=== PATIENT | female | born 1970 | race Caucasian/White ===

== ENCOUNTER → 2018-09-30 16:10 | Outpatient (CLI) | payer OTHER, SELFPAY ==
[2018-09-30 18:09] LABS: T4 Free Direct 0.52 ng/dL (0.76-1.46); Thyroid Stim Hormone (TSH) 0.88 uIU/mL (0.358-3.74)
[2018-10-02 17:24] LABS: Free T3 2.5 pg/mL (2.18-3.98)
== END ==
PROVIDERS: Visit Provider Family Medicine
DX: E06.3 Autoimmune thyroiditis (principal)
CPT/HCPCS: 36415; 84439; 84443; 84481

== ENCOUNTER → 2019-06-29 | Outpatient (CLI) | payer OTHER, SELFPAY ==
[2019-06-29 14:23] LABS: Free T3 3.5 pg/mL (2.18-3.98); T4 Free Direct 0.61 ng/dL (0.76-1.46); Thyroid Stim Hormone (TSH) 0.01 uIU/mL (0.358-3.74)
== END | disposition home or self-care (01) ==
LOC: MFPLAB 12:07
PROVIDERS: Family Provider Family Medicine; PCP Family Medicine; Referring Provider Family Medicine; Visit Provider Family Medicine
DX: E06.3 Autoimmune thyroiditis (principal)
CPT/HCPCS: 36415; 84439; 84443; 84481

== ENCOUNTER → 2019-10-14 14:07 | Outpatient (CLI) | payer OTHER, SELFPAY ==
[2019-10-14 15:48] LABS: Free T3 3.7 pg/mL (2.18-3.98); T4 Free Direct 0.74 ng/dL (0.76-1.46); Thyroid Stim Hormone (TSH) 0.01 uIU/mL (0.358-3.74)
== END ==
PROVIDERS: Family Provider Family Medicine; PCP Family Medicine; Referring Provider Family Medicine; Visit Provider Family Medicine
DX: E06.3 Autoimmune thyroiditis (principal)
CPT/HCPCS: 36415; 84439; 84443; 84481

== ENCOUNTER → 2019-12-14 12:36 | Outpatient (CLI) | payer OTHER, SELFPAY ==
[2019-12-16 13:20] LABS: HPV Reflexed? NOT INDICATED
== END ==
PROVIDERS: Family Provider Family Medicine; PCP Family Medicine; Referring Provider Nurse Practitioner Family; Visit Provider Nurse Practitioner Family
DX: Z01.419 Encounter for gynecological examination (general) (routine) without abnormal findings (principal)
CPT/HCPCS: 88175; G0145

== ENCOUNTER 2020-01-11 09:48 | Day surgery (SDC) | payer OTHER, SELFPAY ==
--- NOTE | 2019-12-28 11:06 | HP_ITS ---
Intake Vital Signs 12/28/19 Height 5 ft 6.25 in 12/28/19 Weight: 125 lb 12/28/19 BP 120/75 12/28/19 Blood Pressure Location Rt brachial 12/28/19 Position Sitting 12/28/19 Respiration 18 Intake Visit Reasons: RECTAL BLEEDING Organizational Effectiveness Consultant Required: No Is patient in pain?: No Allergies No Known Allergies Allergy (Unverified 12/28/19 09:58) Medications ascorbic acid (vitamin C) 1,000 mg tablet 1 g PO Q6H 12/28/19 [History Confirmed 12/28/19] cholecalciferol (vitamin D3) 2,000 unit tablet 2,000 unit PO DAILY 12/28/19 [History Confirmed 12/28/19] cyclobenzaprine 10 mg tablet 10 mg PO HS 12/28/19 [History Confirmed 12/28/19] multivitamin 1 tab PO DAILY 12/28/19 [History Confirmed 12/28/19] naproxen 500 mg tablet 500 mg PO BID 12/28/19 [History Confirmed 12/28/19] thyroid (pork) 60 mg tablet 60 mg PO .fives times daily tab 12/28/19 [History Confirmed 12/28/19] PFSH Medical History Bloody diarrhea (Acute) Hypothyroid (Acute) Surgical History History of wisdom tooth extraction (Acute) S/P unilateral salpingo-oophorectomy (Acute) Family History Father Heart disease HPI HPI HPI: FRANKLIN SULTANA, is a 49 F who presents to the office today for HPI HPI Surgical H&P: Yes HPI: FRANKLIN SULTANA, is a 49 F who presents to the office today for bright red blood per rectum. Patient states since June she is noticed bright red blood per rectum with bowel movements. Patient states she has bowel movements almost every day and also has blood almost every day. Patient states she does have a history of IBS so she will have softer stools and then diarrhea. Patient states she may have some hemorrhoids that prolapse out when she is on the toilet but they are not always out. Patient denies any abdominal pain or nausea or vomiting. Patient does have past medical history for ankylosing spondylosis as well as Shalom's. Patient's last colonoscopy was in 2009 due to irregular bowel movements clinic main campus negative per patient. patient denies any family history of colon cancer. Exam Const General: cooperative, comfortable, no acute distress Resp Effort & Inspection: normal respiratory effort Cardio Rate: regular rate GI Inspection: non-distended Palpation: soft, no guarding, nontender Other: KATHRIN: Small internal hemorrhoids appreciated about 3:00 to 5:00 with 12:00 being posterior, no obvious prolapsing on exam with Valsalva, no gross blood, no other masses appreciated, normal sphincter tone Assessment & Plan Problems 1. BRBPR (bright red blood per rectum) K62.5 Plan I have discussed the above with the patient. I have offered the patient colonoscopy for evaluation. I have explained the risks/benefits of the procedure and described the procedure. I have discussed the risks with the patient, including but not limited to: infection, bleeding, perforation of the GI tract requiring emergency surgery, inability to complete the procedure, injury to any internal organs, complications of anesthesia, etc. - the patient understands and agrees to proceed. I have answered all the patient's questions to the patient's satisfaction and the patient has no further questions. The patient has been given instructions for the colon cleansing preparation. One day of clears, MiraLAX to collect split prep. Camila Slaughter M.D. Pager: [phone] [facility] [address] [place] [address], [address] [place] [address] Office: [phone] Plan Detail Follow Up We will schedule colonoscopy Coding Level of Care Code Off vis,new,level 3 Diagnoses BRBPR (bright red blood per rectum) K62.5 12/28/19 1107 <Electronically signed by Caimla Whitehead am, MD> Date _ Camila Slaughter MD I have examined the patient the following changes are noted: Patient tolerated prep well and denies any bleeding during colon prep.
[2020-01-11 10:25] VITALS: BP 101/60; PULSE 75; RESP 16; TEMP 36.8; O2SAT 100; BMI 19.5
[2020-01-11 10:30] LABS: Internal QC Validated? YES +Cl - CLEAR BKGD; Pregnancy, Urine Negative Negative
[2020-01-11] MEDS: Lactated Ringers 1,000 ML 100 ML IV (10:30)
--- NOTE | 2020-01-11 11:00 | COLBX_PTH ---
PATIENT: FRANKLIN SULTANA LOC: EN U#:[id number] AGE/SX: 49/F ROOM: RE01/11/[address]: Dr. Camila Slaughter MD : 1970 BED: DIS: 01/11/2020 SPEC #: [id number] RECD: 01/11/20 14:20 STATUS: PRASANAN MAUREEN #: [id number] JEAN-PAUL: 01/11/20 11:[address]: Camila Slaughter DEPT: SURGICAL PATHOLOGY RECD BY: Sylvie Salter ENTERED: 01/11/20 14:25 SP TYPE: COLON BX OT DR: Dr. Rosas Chase MD Tissues: Sigmoid colon biopsy Procedures: Surgery Specimen Level IV HEADER OPERATION: Colonoscopy (MAC) PRE-OP DIAGNOSIS: Rectal bleeding TISSUE SUBMITTED: Distal sigmoid biopsy MICROSCOPIC DIAGNOSIS Distal sigmoid, biopsy: Fragments of colonic mucosa, no pathologic diagnosis. SJ:tashi 01/12/20 MICROSCOPIC DESCRIPTION Slides are reviewed. GROSS DESCRIPTION Received in fixative is one container labeled with the patient's name and designated distal sigmoid biopsy. The specimen consists of two irregular fragments of light portillo soft tissue that in aggregate measure 0.5 x 0.3 x 0.1 cm. The specimen is totally submitted in one cassette. / SJ:tashi 01/11/20 TC:4 CPT: 33533
[2020-01-11 11:55] VITALS: BP 101/60; BP 95/56; PULSE 71; RESP 18; TEMP 36.4; O2SAT 100
--- NOTE | 2020-01-11 11:58 | OP.COLON_ITS ---
Patient Name: Marialuisa Gomez Procedure Date: 01/11/2020 10:37 AM Date of : 1970 Age: 49 Procedure: Colonoscopy Indications: Rectal bleeding Providers: Camila Slaughter MD Referring MD: Camila Slaughter MD Medicines: Monitored Anesthesia Care Patient Profile: This is a 49 year old female. Last Colonoscopy: 8 years ago. Complications: No immediate complications. Procedure: Pre-Anesthesia Assessment: - Prior to the procedure, a History and Physical was performed, and patient medications and allergies were reviewed. The patient's tolerance of previous anesthesia was also reviewed. The risks and benefits of the procedure and the sedation options and risks were discussed with the patient. All questions were answered, and informed consent was obtained. Prior Anticoagulants: The patient has taken no previous anticoagulant or antiplatelet agents. ASA Grade Assessment: II - A patient with mild systemic disease. After reviewing the risks and benefits, the patient was deemed in satisfactory condition to undergo the procedure. After I obtained informed consent, the scope was passed under direct vision. Throughout the procedure, the patient's blood pressure, pulse, and oxygen saturations were monitored continuously. The colonoscope was introduced through the anus and advanced to the cecum, identified by the appendiceal orifice, ileocecal valve and palpation. The patient tolerated the procedure well. The colonoscopy was technically difficult and complex due to a tortuous colon. Successful completion of the procedure was aided by changing the patient to a supine position. Scope In: 11:08:58 AM Scope Withdrawal Time 0 hours 18 minutes 43 seconds Scope Out: 11:49:33 AM Total Procedure Duration Time 0 hours 40 minutes 35 seconds Findings: Hemorrhoids were found on perianal exam. Non-bleeding internal hemorrhoids were found during digital exam. The hemorrhoids were Grade I (internal hemorrhoids that do not prolapse) and Grade II (internal hemorrhoids that prolapse but reduce spontaneously). A linear area of mildly irritated mucosa was found in the sigmoid colon--may have been due to trauma from the scope. Biopsies were taken with a cold forceps for histology. The exam was otherwise without abnormality. Impression: - Hemorrhoids found on perianal exam. - Non-bleeding internal hemorrhoids. - Mucosa in the sigmoid colon. Biopsied. - The examination was otherwise normal. Recommendation: - Discharge patient to home. - Resume previous diet. - Continue present medications. - Await pathology results. - Repeat colonoscopy in 10 years for screening purposes. Procedure Code(s): --- Professional --- 23312, Colonoscopy, flexible; with biopsy, single or multiple Diagnosis Code(s): --- Professional --- K64.1, Second degree hemorrhoids K63.89, Other specified diseases of intestine K62.5, Hemorrhage of anus and rectum CPT copyright 2017 [employer]. All rights reserved. The codes documented in this report are preliminary and upon top coater review may be revised to meet current compliance requirements. MD Camila Cage MD 01/11/2020 11:58:01 AM This report has been signed electronically. Number of Addenda: 0 Note Initiated On: 01/11/2020 10:37 AM
--- NOTE | 2020-01-11 11:58 | OP.CCLET_ITS ---
01/11/2020 Rosas Chase [address] [place] [address] Re : Colonoscopy procedure for Marialuisa Cadego Dear Dr. Chase This procedure was performed on Saturday, January 11, 2020. My impressions and recommendations are as follows: Impressions : - Hemorrhoids found on perianal exam. - Non-bleeding internal hemorrhoids. - Mucosa in the sigmoid colon. Biopsied. - The examination was otherwise normal. Recommendations : - Discharge patient to home. - Resume previous diet. - Continue present medications. - Await pathology results. - Repeat colonoscopy in 10 years for screening purposes. My findings are described in the full procedure note, which is enclosed. If I can be of further assistance, please feel free to contact me at Doctor phone number(s): , Work: . Sincerely, MD Camila Cage MD 01/11/2020 11:58:01 AM This report has been signed electronically.
[2020-01-11 12:00] VITALS: BP 101/60; BP 101/63; PULSE 74; RESP 18; O2SAT 100
[2020-01-11 12:05] VITALS: BP 101/60; BP 105/67; PULSE 71; RESP 18; O2SAT 100
[2020-01-11 12:10] VITALS: BP 101/60; BP 107/66; PULSE 70; RESP 18; TEMP 36.3; O2SAT 100
[2020-01-11 12:39] VITALS: BP 101/60
== END 2020-01-11 12:51 | disposition home or self-care (01) ==
LOC: EN 09:49 → AC 09:51
PROVIDERS: Anesthesiology; PCP Family Medicine; Referring Provider Surgery; Visit Provider Surgery
PROC: 0DJD8ZZ Inspection of Lower Intestinal Tract, Via Natural or Artificial Opening Endoscopic (ICD-10-PCS; CPT 45378; principal; 2020-01-11 10:55)
DX: K64.1 Second degree hemorrhoids (principal); K64.0 First degree hemorrhoids; E03.9 Hypothyroidism, unspecified; M45.9 Ankylosing spondylitis of unspecified sites in spine; K58.9 Irritable bowel syndrome, unspecified; K21.9 Gastro-esophageal reflux disease without esophagitis; M06.9 Rheumatoid arthritis, unspecified; Z79.899 Other long term (current) drug therapy
CPT/HCPCS: 45380; 81025; 88305; J7120

== ENCOUNTER → 2020-07-26 13:46 | Outpatient (CLI) | payer OTHER, SELFPAY ==
[2020-07-26 15:58] LABS: T4 Free Direct 0.86 ng/dL (0.76-1.46); Thyroid Stim Hormone (TSH) < 0.01 uIU/mL (0.358-3.74)
== END ==
PROVIDERS: PCP Family Medicine; Referring Provider Family Medicine; Visit Provider Family Medicine
DX: E06.3 Autoimmune thyroiditis (principal)
CPT/HCPCS: 36415; 84439; 84443; 84481

== ENCOUNTER → 2021-04-08 09:24 | Outpatient (CLI) | payer OTHER, SELFPAY ==
[2021-04-08 10:09] LABS: Absolute Lymphocyte Count 2.34 X10^3/uL (0.83-4.51); Absolute Neutrophil Count 1.9 X10^3/uL (2.0-7.7); Basophil# 0.06 X10^3/uL; Basophil% 1.2 % (0-1); Eosinophil# 0.19 X10^3/uL; Eosinophils% 3.8 % (0-5); Hematocrit 43.5 % (37-47); Hemoglobin 13.9 g/dL (12.0-15.0); Lymphocyte # 2.34 X10^3/ul (0.83-4.51); Lymphocyte % 46.7 % (19-41); Mean Corpuscular Hgb 30.9 pg (27.0-32.0); Mean Corpuscular Volume 96.7 fL (81-99); Mean Platelet Vol. 10.1 fl (6.2-12.0); Monocyte# 0.55 X10^3/uL; NRBC Flagged by Analyzer 0 % (0-5); Neutrophil # 1.86 X10^3/uL (2.7-7.7); Neutrophil % 37.1 % (47-70); Platelet Count 251 K/mm3 (150-450); RBC Distribution Width CV 11.5 % (11.6-14.6); RBC Distribution Width SD 41.1 fl (35.1-43.9)
[2021-04-08 10:42] LABS: ALB/GLOB Ratio 1.3 RATIO (0.9-2.4); AST(SGOT) 26 U/L (15-37); Alanine Aminotransfer ALT/SGPT 35 U/L (13-56); Albumin, Serum 4.4 g/dL (3.2-5.0); Alkaline Phosphatase 87 U/L (45-117); Anion Gap 4 (5-15); BUN 26 mg/dL (7-18); BUN/Creat Ratio 35.6 RATIO (10-20); Calcium,Total 8.9 mg/dL (8.5-10.1); Chloride 102 mmol/L (98-107); Cholesterol 226 mg/dL (200); Creatinine, Serum 0.73 mg/dL (0.55-1.02); EST Glomerular Filtration Rate 90 mL/min (>60); Est Glom Filt Rate - Afr Amer 108 mL/min (>60); Free T3 1.7 pg/mL (2.18-3.98); Globulin 3.4 g/dL (2.2-4.2); Glucose 96 mg/dL (74-106); High Density Lipoprotein 89 mg/dL; Potassium 4.1 mmol/L (3.5-5.1); Protein, Total 7.8 g/dL (6.4-8.2); Sodium Level 138 mmol/L (136-145); T4 Free Direct 0.58 ng/dL (0.76-1.46); Thyroid Stim Hormone (TSH) 0.02 uIU/mL (0.358-3.74); Triglycerides 55 mg/dL; Very Low Density Lipoprotein 11 mg/dL (5-40)
== END ==
PROVIDERS: PCP Family Medicine; Visit Provider Family Medicine
DX: E06.3 Autoimmune thyroiditis (principal)
CPT/HCPCS: 36415; 80053; 80061; 84439; 84443; 84481; 85025

== ENCOUNTER → 2021-10-06 14:34 | Outpatient (CLI) | payer OTHER, SELFPAY ==
[2021-10-06 17:12] LABS: Thyroid Stim Hormone (TSH) 0.01 uIU/mL (0.358-3.74)
== END ==
PROVIDERS: PCP Family Medicine; Referring Provider Internal Medicine Endocrinology, Diabetes & Metabolism; Visit Provider Internal Medicine Endocrinology, Diabetes & Metabolism
DX: E03.8 Other specified hypothyroidism (principal); E06.3 Autoimmune thyroiditis
CPT/HCPCS: 36415; 84439; 84443; 84481

== ENCOUNTER 2022-01-10 16:43 | Outpatient (CLI) | payer OTHER, SELFPAY ==
[2022-01-16 15:08] LABS: HPV APTIMA, High Risk Negative (Negative)
[2022-01-16 15:09] LABS: HPV Reflexed? YES, CHARGE PATIENT
== END 2022-01-10 23:59 | disposition home or self-care (01) ==
LOC: LABSPEC 16:45 → MFPLAB 16:46
PROVIDERS: PCP Family Medicine; Referring Provider Family Medicine; Visit Provider Family Medicine
DX: Z00.00 Encounter for general adult medical examination without abnormal findings (principal); R31.9 Hematuria, unspecified
CPT/HCPCS: 87086; 87624; 88175; G0145

== ENCOUNTER → 2022-04-13 | Outpatient (CLI) | payer OTHER, SELFPAY ==
[2022-04-13 15:54] LABS: Free T3 3.3 pg/mL (2.18-3.98); T4 Free Direct 0.64 ng/dL (0.76-1.46); Thyroid Stim Hormone (TSH) 0.01 uIU/mL (0.358-3.74)
== END | disposition home or self-care (01) ==
LOC: MTLAB 14:01
PROVIDERS: PCP Family Medicine; Referring Provider Internal Medicine Endocrinology, Diabetes & Metabolism; Visit Provider Internal Medicine Endocrinology, Diabetes & Metabolism
DX: E03.8 Other specified hypothyroidism (principal); E06.3 Autoimmune thyroiditis
CPT/HCPCS: 36415; 84439; 84443; 84481

== ENCOUNTER 2023-09-20 09:00 | Day surgery (SDC) | payer BC, SELFPAY ==
--- NOTE | 2023-09-20 09:21 | PCM.HP.BLA ---
History and Physical Date of Admission: 09/20/23 Chief Complaint: rectal bleeding/hemorrhoids Allergies No Known Allergies Allergy (Verified 08/06/23 15:08) Medications naproxen 500 mg tablet 500 mg PO DAILY PRN Pain Or Fever 12/28/19 [History Confirmed 08/06/23] thyroid (pork) 120 mg tablet 120 mg PO .COMPLEX #42 tabs 04/16/22 [Rx Confirmed 08/06/23] Hydrocortisone 2.5%/lidocaine 5% suppository (cmpd) #30 ea 09/18/22 [Rx Confirmed 08/06/23] Diltiazem 2% / Lidocaine 5% ointment (compound) #1 ea 01/29/23 [Rx Confirmed 08/06/23] Hydrocortisone 2.5%/lidocaine 5% suppository (cmpd) #30 ea 04/02/23 [Rx Confirmed 08/06/23] [facility] Medical History Anal fissure Arthritis Bloody diarrhea Hypothyroid 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 Her most recent office visit was April 02, 2023 when she was seen in the office by Dr. Camila Slaughter. The patient was having bright red blood per rectum. Her most recent colonoscopy was January 11, 2020. She was treated with hydrocortisone suppositories. At her previous office visit in January 2020 through there was concerned about a possible anal fissure. The patient was prescribed diltiazem ointment at that time. Patient presents today for an additional opinion regarding intermittent episodes of profuse rectal bleeding sometimes with clot always bright red. She then goes on to discuss that she will have tissue prolapse which she is assuming is internal hemorrhoids. She has to manually reduce the tissue. She notes the colonoscopy of January 11, 2020 when there was a questionable area of the sigmoid colon that was biopsied but normal tissue. There was then suggested that this was simply scope irritation during the colonoscopy. She does have a family history of the great-grandmother had colon cancer but she was in her 90s. 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 ROS General General: No weight change, appetite, fatigue, colon cancer or breast cancer HEENT HEENT: No difficulty swallowing, eye injury, eye surgery, swollen glands or hoarseness Endo Endocrine: Yes thyroid disease; No diabetes mellitus, thyroid cancer, Hair loss, heat intolerance or cold intolerance Additional Details: Hasimoto's disease Skin Skin: No rash or changing moles Musc Musculoskeletal: No back problems, arthritis, rheumatoid arthritis, gout or joint pain Cardio Cardiovascular: No murmur, pacemaker, heart disease, atrial fibrillation, high blood pressure, heart attack, heart stent, palpitations, shortness of breat with exertion or chest pain Psych Psychiatric: No depression, anxiety or hearing voices Resp Respiratory: No shortness of breath, No sleep apnea, No cough, No COPD, No asthma, No emphysema and No wheezing Gastro Gastrointestinal: No abdominal pain, No nausea or vomiting, Yes diarrhea, Yes constipation, Yes blood in stool, Yes acid reflux, Yes hemorrhoids, No ulcers, No gallbladder problem and No black,tarry stools Magen Hematologic: No blood thinners, No blood disorders, No bleeding, No anemia and No blood clots Neuro Neurologic: No numbness and No tingling Exam Const General: cooperative, healthy appearing, comfortable and no acute distress Nutritional Appearance: underweight Orientation: alert, awake and oriented x3 HENMT Head: normal to inspection Eyes General: appearance normal, both eyes and all related structures Neck Neck: normal visual inspection Resp Effort & Inspection: normal respiratory effort Auscultation: clear to auscultation bilaterally Cardio Palpation: normal PMI GI Inspection: normal to inspection Palpation: soft and no hepatosplenomegaly Musc Cervical Spine: normal cervical lordosis Neuro General: patient alert, patient awake and patient oriented x3 Extrem General: normal to inspection Psych Appearance: grossly normal Assessment and Plan Assessment and Plan (1) Rectal bleeding: Status: Acute Plan: Ongoing problems with bright red rectal bleeding sometimes with clots sometimes with prolapsing tissue. Initial diagnoses with it bleeding internal hemorrhoids possible anal fissure and she been treated for both with ongoing problems. 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 She also states that she has irritable bowel syndrome. Based upon her description she may indeed have prolapsing bleeding internal hemorrhoids. Need to evaluate for the potential for rectal prolapse. Unfortunately today's visit I was urgently called to the operating room. My plan will be that on the day of her colonoscopy we may with nursing assistance have her try to squat and purposely prolapse the tissue prior to the scope. Plan on doing a colonoscopy with biopsy or polypectomy as indicated. Then I will plan on a postoperative office visit to discuss potential surgical techniques. Based upon her description if she does indeed have prolapsing internal hemorrhoids I likely will favor a surgical hemorrhoidectomy. We have already discussed some of the benefit risk complications and alternatives. She has had an opportunity to ask and have questions answered. We will update her colonoscopy and further discussion then as appropriate. Copy: Dr Rosas Starks M.D., F.A.C.S I have examined the patient and the H&P has been reviewed. There are no clinical changes since date of exam. Win Starks M.D., F.A.C.S.
[2023-09-20] MEDS: Lactated Ringers 1,000 ML 15 ML IV (09:23)
[2023-09-20 09:24] VITALS: BP 115/76; PULSE 72; RESP 18; TEMP 36.6; O2SAT 100; BMI 18.3
--- NOTE | 2023-09-20 10:36 | OP.COLON_ITS ---
Patient Name: Marialuisa Gomez Procedure Date: 09/20/2023 10:05 AM Date of : 1970 Age: 53 Procedure: Colonoscopy Indications: Rectal bleeding Providers: Win Starks MD Patient Profile: Last Colonoscopy: January 2020. Complications: No immediate complications. Procedure: Pre-Anesthesia Assessment: - Prior to the procedure, a History and Physical was performed, and patient medications and allergies were reviewed. The patient's tolerance of previous anesthesia was also reviewed. The risks and benefits of the procedure and the sedation options and risks were discussed with the patient. All questions were answered, and informed consent was obtained. Prior Anticoagulants: The patient has taken no anticoagulant or antiplatelet agents. ASA Grade Assessment: II - A patient with mild systemic disease. After reviewing the risks and benefits, the patient was deemed in satisfactory condition to undergo the procedure. After I obtained informed consent, the scope was passed under direct vision. Throughout the procedure, the patient's blood pressure, pulse, and oxygen saturations were monitored continuously. The colonoscope was introduced through the anus and advanced to the cecum, identified by appendiceal orifice and ileocecal valve. The colonoscopy was performed without difficulty. The patient tolerated the procedure well. The quality of the bowel preparation was good. The ileocecal valve and the appendiceal orifice were photographed. Scope In: 10:19:28 AM Scope Withdrawal Time 0 hours 6 minutes 37 seconds Scope Out: 10:31:45 AM Total Procedure Duration Time 0 hours 12 minutes 17 seconds Findings: The digital rectal exam findings include non-thrombosed internal hemorrhoids and internal hemorrhoids that prolapse with straining, but require manual replacement into the anal canal (Grade III). A few diverticula were found in the sigmoid colon. The left colon was moderately tortuous. Impression: - Non-thrombosed internal hemorrhoids and internal hemorrhoids that prolapse with straining, but require manual replacement into the anal canal (Grade III) found on digital rectal exam. - Diverticulosis in the sigmoid colon. - Tortuous colon. - No specimens collected. Recommendation: - Discharge patient to home. - Resume previous diet. - Continue present medications. - Repeat colonoscopy in 10 years for screening purposes. - Return to my office in 2 weeks. Grade 3 prolapsing internal hemorrhoids particularly right lateral. Surgical hemorrhoidectomy will be recommended. Procedure Code(s): --- Professional --- 47409, Colonoscopy, flexible; diagnostic, including collection of specimen(s) by brushing or washing, when performed (separate procedure) Diagnosis Code(s): --- Professional --- K64.2, Third degree hemorrhoids K62.5, Hemorrhage of anus and rectum K57.30, Diverticulosis of large intestine without perforation or abscess without bleeding Q43.8, Other specified congenital malformations of intestine CPT copyright 2021 [employer]. All rights reserved. The codes documented in this report are preliminary and upon torch straightener and heater review may be revised to meet current compliance requirements. Win Starks MD 09/20/2023 10:36:23 AM This report has been signed electronically. Number of Addenda: 0 Note Initiated On: 09/20/2023 10:05 AM
--- NOTE | 2023-09-20 10:37 | OP.CCLET_ITS ---
09/20/2023 Rosas Chase [address] [place] [address] Re : Colonoscopy procedure for Marialuisa Patricia Dear Dr. Chase This procedure was performed on Wednesday, September 20, 2023. My impressions and recommendations are as follows: Impressions : - Non-thrombosed internal hemorrhoids and internal hemorrhoids that prolapse with straining, but require manual replacement into the anal canal (Grade III) found on digital rectal exam. - Diverticulosis in the sigmoid colon. - Tortuous colon. - No specimens collected. Recommendations : - Discharge patient to home. - Resume previous diet. - Continue present medications. - Repeat colonoscopy in 10 years for screening purposes. - Return to my office in 2 weeks. Grade 3 prolapsing internal hemorrhoids particularly right lateral. Surgical hemorrhoidectomy will be recommended. My findings are described in the full procedure note, which is enclosed. If I can be of further assistance, please feel free to contact me at Doctor phone number(s): Work: . Sincerely, Win Starks MD 09/20/2023 10:36:23 AM This report has been signed electronically.
[2023-09-20 10:39] VITALS: BP 115/76; BP 96/60; PULSE 74; RESP 16; TEMP 37.1; O2SAT 100
[2023-09-20 10:45] VITALS: BP 115/76; BP 92/62; PULSE 67; RESP 16; O2SAT 99
[2023-09-20 10:50] VITALS: BP 115/76; BP 91/63; PULSE 73; RESP 16; O2SAT 98
[2023-09-20 10:55] VITALS: BP 115/76; BP 98/69; PULSE 71; RESP 16; TEMP 36.6; O2SAT 100
[2023-09-20 11:24] VITALS: BP 115/76
== END 2023-09-20 11:26 | disposition home or self-care (01) ==
LOC: EN 09:03 → AC 09:05
PROVIDERS: PCP Family Medicine; Referring Provider Family Medicine; Visit Provider Surgery
PROC: 0DJD8ZZ Inspection of Lower Intestinal Tract, Via Natural or Artificial Opening Endoscopic (ICD-10-PCS; CPT 45378; principal; 2023-09-20 10:10)
DX: K62.5 Hemorrhage of anus and rectum (principal); Z80.0 Family history of malignant neoplasm of digestive organs; K64.2 Third degree hemorrhoids; Q43.8 Other specified congenital malformations of intestine
CPT/HCPCS: 45378; J7120; J2405

== ENCOUNTER 2024-04-15 11:13 | Day surgery (SDC) | payer OTHER, SELFPAY ==
--- NOTE | 2024-04-09 14:12 | EKG12_ITS ---
Test Reason : PRE-OP Blood Pressure : / mmHG Vent. Rate : 069 BPM Atrial Rate : 069 BPM P-R Int : 168 ms QRS Dur : 086 ms QT Int : 412 ms P-R-T Axes : 067 077 051 degrees QTc Int : 441 ms Normal sinus rhythm Normal ECG Confirmed by GILBERTO WARREN, CHRIS ([id number]), news editor NICHOLAS BALTAZAR ([id number]) on 04/10/2024 6:39:20 AM Referred By: Win Starks Confirmed By:CHRIS MACIAS MD
[2024-04-09 15:04] LABS: Hematocrit 38.5 % (37-47); Hemoglobin 12.6 g/dL (12.0-15.0); Mean Corp Hgb Conc 32.7 g/dL (32-36); Mean Corpuscular Hgb 30.6 pg (27.0-32.0); Mean Corpuscular Volume 93.4 fL (81-99); Mean Platelet Vol. 9.7 fl (6.2-12.0); Platelet Count 240 K/mm3 (150-450); RBC Distribution Width CV 11.8 % (11.6-14.6); RBC Distribution Width SD 40.3 fl (35.1-43.9); Red Blood Count 4.12 M/mm3 (4.2-5.4); White Blood Count 5.2 K/mm3 (4.4-11.0)
[2024-04-09 15:41] LABS: Anion Gap 5 (5-15); BUN 28 mg/dL (7-18); BUN/Creat Ratio 41.9 RATIO (10-20); Calcium,Total 9.4 mg/dL (8.5-10.1); Chloride 103 mmol/L (98-107); Creatinine, Serum 0.67 mg/dL (0.55-1.02); EST Glomerular Filtration Rate 98 mL/min (>60); Est Glom Filt Rate - Afr Amer 119 mL/min (>60); Glucose 94 mg/dL (74-106); Potassium 3.7 mmol/L (3.5-5.1); Sodium Level 137 mmol/L (136-145)
[2024-04-15 11:42] VITALS: BP 125/86; PULSE 71; RESP 16; TEMP 36.2; O2SAT 100; BMI 18.8
[2024-04-15] MEDS: Lactated Ringers 1,000 ML 15 ML IV (11:49)
--- NOTE | 2024-04-15 12:31 | PCM.HP.BLA ---
History and Physical Date of Admission: 04/15/24 Intake Visit Reasons: F/U Hemorrhoids/Rectal Bleeding Chief Complaint: F/U to discuss hemorrhoid surgery Member Of Congress Required: No Is patient in pain?: No Allergies No Known Allergies Allergy (Verified 03/02/24 15:29) Medications naproxen 500 mg tablet 500 mg PO DAILY PRN Pain Or Fever 12/28/19 [History Confirmed 03/02/24] Hydrocortisone 2.5%/lidocaine 5% suppository (cmpd) #30 ea 09/18/22 [Rx Confirmed 03/02/24] Diltiazem 2% / Lidocaine 5% ointment (compound) #1 ea 01/29/23 [Rx Confirmed 03/02/24] Hydrocortisone 2.5%/lidocaine 5% suppository (cmpd) #30 ea 04/02/23 [Rx Confirmed 03/02/24] thyroid (pork) 120 mg tablet ([place] Thyroid) 135 mg PO DAILY 09/18/23 [History Confirmed 03/02/24] PFSH Medical History (Updated 03/02/24 @ 15:26 by Demetrice Ireland) Acid reflux Anal fissure Arthritis Asthma Back pain Bleeding internal hemorrhoids Bloody diarrhea Hemorrhoids History of GI bleed History of IBS Hypothyroid 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 Non-smoker Post-menopausal Rectal bleeding Seasonal allergies Thyroid disease Wears glasses Surgical History (Updated 03/02/24 @ 15:27 by Demetrice Ireland) History of colonoscopy History of wisdom tooth extraction S/P unilateral salpingo-oophorectomy Family History Father Heart diseaseGrandfather Arthritis CVA (cerebral vascular accident)Aunt Thyroid disorderOther Autoimmune disease Social History Smoking Status: Never smoker alcohol intake: current alcohol intake frequency: holidays/special occasions only substance use type: does not use frequency: 5-6 times per week HPI HPI HPI: 53-year-old female presents to discuss rectal bleeding. On September 20, 2023 I was able to assist the patient with a colonoscopy for her rectal bleeding symptoms. I felt that the patient had grade 3 internal hemorrhoids that prolapse to her bleeding. The left colon was moderately tortuous and a few diverticula were identified. Recommendations were for routine screening colonoscopy at 10 years. I asked that the patient come back to my office to discuss a surgical hemorrhoidectomy particularly drawing attention to the right lateral aspect of the anus. The patient has no particular complaints today. She continues to enjoy a very healthy lifestyle. She exercises routinely. She enjoys cleaning homes. She is remaining very busy. She notes that she still experiences prolapsing tissue. Fortunately for the time being bright red rectal bleeding has mostly ceased. My previous notes dating all the way back to August 06, 2023 will affect the following 52-year-old female presents regarding concerns with hemorrhoidal bleeding. Her most recent office visit was April 02, 2023 when she was seen in the office by Dr. Camila Slaughter. The patient was having bright red blood per rectum. Her most recent colonoscopy was January 11, 2020. She was treated with hydrocortisone suppositories. At her previous office visit in January 2020 through there was concerned about a possible anal fissure. The patient was prescribed diltiazem ointment at that time. Patient presents today for an additional opinion regarding intermittent episodes of profuse rectal bleeding sometimes with clot always bright red. She then goes on to discuss that she will have tissue prolapse which she is assuming is internal hemorrhoids. She has to manually reduce the tissue. She notes the colonoscopy of January 11, 2020 when there was a questionable area of the sigmoid colon that was biopsied but normal tissue. There was then suggested that this was simply scope irritation during the colonoscopy. She does have a family history of the great-grandmother had colon cancer but she was in her 90s. 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 Ongoing problems with bright red rectal bleeding sometimes with clots sometimes with prolapsing tissue. Initial diagnoses with it bleeding internal hemorrhoids possible anal fissure and she been treated for both with ongoing problems. 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 She also states that she has irritable bowel syndrome. Based upon her description she may indeed have prolapsing bleeding internal hemorrhoids. Need to evaluate for the potential for rectal prolapse. Unfortunately today's visit I was urgently called to the operating room. My plan will be that on the day of her colonoscopy we may with nursing assistance have her try to squat and purposely prolapse the tissue prior to the scope. Plan on doing a colonoscopy with biopsy or polypectomy as indicated. Then I will plan on a postoperative office visit to discuss potential surgical techniques. Based upon her description if she does indeed have prolapsing internal hemorrhoids I likely will favor a surgical hemorrhoidectomy. We have already discussed some of the benefit risk complications and alternatives. She has had an opportunity to ask and have questions answered. We will update her colonoscopy and further discussion then as appropriate. Copy: Dr Rosas Starks M.D., F.A.C.S ROS General General: No weight change, appetite, fatigue, colon cancer or breast cancer HEENT HEENT: No difficulty swallowing, eye injury, eye surgery, swollen glands or hoarseness Endo Endocrine: Yes thyroid disease; No diabetes mellitus, thyroid cancer, Hair loss, heat intolerance or cold intolerance Additional Details: Hasimoto's disease Skin Skin: No rash or changing moles Musc Musculoskeletal: No back problems, arthritis, rheumatoid arthritis, gout or joint pain Cardio Cardiovascular: No murmur, pacemaker, heart disease, atrial fibrillation, high blood pressure, heart attack, heart stent, palpitations, shortness of breat with exertion or chest pain Psych Psychiatric: No depression, anxiety or hearing voices Resp Respiratory: No shortness of breath, No sleep apnea, No cough, No COPD, No asthma, No emphysema and No wheezing Gastro Gastrointestinal: No abdominal pain, No nausea or vomiting, Yes diarrhea, Yes constipation, Yes blood in stool, Yes acid reflux, Yes hemorrhoids, No ulcers, No gallbladder problem and No black,tarry stools Magen Hematologic: No blood thinners, No blood disorders, No bleeding, No anemia and No blood clots Neuro Neurologic: No numbness and No tingling Exam Const General: cooperative, healthy appearing, comfortable and no acute distress Nutritional Appearance: thin Orientation: alert and awake [facility] Head: normal to inspection Eyes General: appearance normal, both eyes and all related structures Neck Neck: normal visual inspection Resp Effort & Inspection: normal respiratory effort Auscultation: clear to auscultation bilaterally Cardio Rate: regular rate Rhythm: regular rhythm GI Palpation: soft and no hepatosplenomegaly Other: Internal/external hemorrhoids noted Musc Cervical Spine: normal cervical lordosis Neuro General: patient alert, patient awake and patient oriented x3 Extrem General: no calf tenderness Psych Appearance: grossly normal Assessment and Plan Assessment and Plan (1) Rectal bleeding: Status: Acute Plan: 53-year-old female. She has a combination of mostly prolapsing internal hemorrhoids with a component of external hemorrhoids. Grade 3. I propose for her surgical hemorrhoidectomy. She has been very very physically active and enjoys exercising and cleaning homes. I do not believe a different technique would offer her the same degree of durability although no promises of non-recurrence has been offered. We have discussed technique, benefit, risk, alternatives. We discussed potential anal stricturing potential sphincter musculature interruption. We have discussed the postoperative need to allow resolution intake prescribed postoperative antibiotics and fiber supplementation and pursue ongoing good hygiene. She is aware that I am dissipating at least 2 to 3 weeks off of her routine work. She has had an opportunity to ask and have questions answered. At this point she is interested in scheduling and proceeding as noted. Copy: Dr Rosas Starks M.D., F.A.C.S. (2) Bleeding internal hemorrhoids: Status: Acute I have examined the patient and the H&P has been reviewed. There are no clinical changes since date of exam. Win Starks M.D., F.A.C.S.
--- NOTE | 2024-04-15 13:04 | EX.PCM.DISCH ---
Discharge Instructions Procedure Rectal Surgery Diet Discharge Diet: - (Light diet. You may advance slowly as tolerated. Avoid spicy and constipating foods.) Activity Discharge Activity: May Not Drive (No driving for 5 days please), May Shower and May Take a Tub Bath Lifting Restrictions: 10 pound weight lifting restriction please. Additional Activity Instructions:: Do not drive or work with heavy equipment or sign legal documents for 24 hours. Be aware that pain medications may cause nausea. You should typically eat light foods as you take your pain medications. Pain medications may also cause constipation, if you have difficulty with this please discuss with your doctor. Dressing / Incision Call your doctor if you observe: Fever of 101 or Higher Cleanse incision/area with: Soap & Water Additional Dressing/Incision Instructions:: May take a sitz bath's and warm soapy water for 15 to 20 minutes at a time as needed for comfort as well as to improve hygiene after bowel movements You may utilize the provided Dibucaine ointment every 2-4 hours topically to the site as needed for comfort Please take a daily fiber supplement like Metamucil, Citrucel, FiberCon. Tablespoon in water or juice. For 5 to 7 days please utilize 1 ounce of mineral oil in food or drink daily. Follow Up Care Please Follow Up With: Win Starks MD When: Please call [phone] for an office follow-up appointment in approximately 3 weeks Test Results: Test results from this visit will be discussed in further detail at your follow-up appointment, if applicable. Discharge Plan Admission Primary Reason for Your Visit: Internal and external hemorrhoids Attending Provider: Win Starks Primary Care Provider: Rosas Chaes Instructions Print Language: Portuguese Discharge Orders/Prescriptions Prescriptions: New metronidazole 250 mg tablet 250 mg PO TID Qty: 15 0RF hydrocodone-acetaminophen 5-325 mg tablet 1 tab PO Q6H PRN (Reason: pain) 4 Days Qty: 15 0RF Continued naproxen 500 mg tablet 500 mg PO DAILY PRN (Reason: Pain Or Fever) (DME) Hydrocortisone 2.5%/lidocaine 5% suppository (cmpd) Suppository See Rx Instructions .Route Qty: 30 0RF Rx Instructions: bid (DME) Diltiazem 2% / Lidocaine 5% ointment (compound) Ointment See Rx Instructions .Route Qty: 1 1RF Rx Instructions: As directed (DME) Hydrocortisone 2.5%/lidocaine 5% suppository (cmpd) Suppository See Rx Instructions .Route Qty: 30 2RF Rx Instructions: As directed thyroid (pork) [[place] Thyroid] 120 mg tablet 135 mg PO DAILY Referrals / Follow Up: Rosas Chase MD [Primary Care Provider] - Disposition Disposition (needs filled in before D/C Order can be placed): Home, Self Care
[2024-04-15] MEDS: Cefotetan 2 GM in 0.9% NS 100 ML IV (13:10)
--- NOTE | 2024-04-15 13:15 | HEM_PTH ---
PATIENT: FRANKLIN SULTANA LOC: [facility] [place] U#:[id number] AGE/SX: 53/F ROOM: RE04/15/[address]: Dr. Win Starks MD : [id number] BED: DIS: 04/15/2024 SPEC #: [id number] RECD: 04/15/24 16:20 STATUS: PRASANNA SOSADestinee #: [id number] JEAN-PAUL: 04/15/24 13:[address]: Win Starks DEPT: SURGICAL PATHOLOGY RECD BY: Sylvie Salter ENTERED: 04/16/24 08:41 SP TYPE: HEMORRHOID OTHR DR: Dr. Rosas Chase MD Tissues: HEMORRHOIDS Procedures: Surgery Specimen Level III HEADER OPERATION: Hemorrhoidectomy PRE-OP DIAGNOSIS: Prolapsing internal hemorrhoids TISSUE SUBMITTED: Internal and external hemorrhoids MICROSCOPIC DIAGNOSIS Internal and external hemorrhoid, hemorrhoidectomy: Pieces of anorectal mucosa with dilated and congested blood vessels, consistent with hemorrhoids. / 04/17/2024 MICROSCOPIC DESCRIPTION Slides are reviewed. GROSS DESCRIPTION Received in fixative is one container labeled with the patient's name and designated Internal and external hemorrhoids. The specimen consists of two pieces of portillo mucosal tissue measuring 2.0 x 1.5 x 0.6cm and 2.5 x 2.0 x 1.0cm. Sections reveal congested cut surfaces. Spring Layer sections from both pieces are submitted in one cassette. / 04/16/2024 TC:5 CPT:05864
[2024-04-15] MEDS: Bupivacaine Mpf 0.5% 30 ML VIAL (13:59)
[2024-04-15] MEDS: BUPIVACAINE LIPOSOME/PF 20 ML VIAL OPERA.SITE (14:00)
[2024-04-15] MEDS: Dibucaine 30 GM Tube 1 APPLIC (14:00)
--- NOTE | 2024-04-15 14:03 | PCM.OPRPT ---
Report of Operation Date of Procedure: 04/15/24 Pre-Operative Diagnosis: Prolapsing internal and external hemorrhoids Post-Operative Diagnosis: Same Surgery/Procedure Performed:: Multiple colon hemorrhoidectomy Description of Surgical Findings:: Timeout informed consent was obtained. 53-year-old female was taken to the operating placed prone on the table she underwent monitored anesthesia care. Cefotetan 2 g were given intravenously. The perianal area was prepped and draped routine fashion with Betadine. 0.5% Marcaine mixed 50-50 with 20 cc of Exparel was used as local anesthetic. 30-gauge needle was used to gently circumferentially inject. Then by palpation and visual speculum inspection there appeared to be conglomerate of significant internal hemorrhoidal disease with smaller external component right posterior lateral and left lateral with smaller components anteriorly. The right posterior lateral and left lateral were treated in the same way. Apical suture of 0 Vicryl was placed. Then a 2-0 chromic suture was placed apically. Scalpel was used to make an incision externally and then the harmonic scalpel was used to resect the internal and external disease. Great care was taken to inspect and preserve the sphincter mechanism. This was readily identified and visualized. The mucosa was then approximated to itself with a running locking 2-0 chromic. Having achieved that I then looked anteriorly and both directly anteriorly and right anterior lateral there were smaller degrees of internal hemorrhoids which I treated with 2-0 chromic suture ligation. Vaseline gauze with Dibucaine was placed intranasally. Blood loss has been very minimal. All specimens were submitted for analysis. She tolerated procedure well without apparent complication. Specimens hemorrhoids. Drains none. Blood loss minimal. The patient was taken to the recovery room in satisfactory addition with apparent complication Win Starks M.D., F.A.C.S. Surgeon: Win Starks Anesthesiologist: Jaylon Martinez
[2024-04-15 14:11] VITALS: BP 123/92; BP 125/86; PULSE 70; RESP 18; TEMP 36.4; O2SAT 100
[2024-04-15 14:15] VITALS: BP 125/86; BP 140/109; PULSE 73; RESP 18; O2SAT 100
[2024-04-15 14:20] VITALS: BP 125/86; BP 153/100; PULSE 90; RESP 18; O2SAT 99
[2024-04-15 14:46] VITALS: BP 125/86; BP 148/97; PULSE 66; RESP 16; TEMP 36.1; O2SAT 100
[2024-04-15 16:26] VITALS: BP 125/86; BP 130/80; PULSE 66; RESP 14; TEMP 36.4; O2SAT 100
== END 2024-04-15 16:33 | disposition home or self-care (01) ==
LOC: SDC 11:16 → AC 11:16
PROVIDERS: PCP Family Medicine; Referring Provider Surgery; Visit Provider Surgery
PROC: (CPT 46260; principal; 2024-04-15 13:00)
DX: K62.5 Hemorrhage of anus and rectum (principal); K64.4 Residual hemorrhoidal skin tags; Z80.0 Family history of malignant neoplasm of digestive organs; E03.9 Hypothyroidism, unspecified
CPT/HCPCS: 46260; 00902; 36415; 80048; 85027; 88304; 93005; J7120; J2405